=== PATIENT | male | born 1985 | race Caucasian/White ===

== ENCOUNTER 2024-05-03 09:19 | Emergency (ER) | payer OTHER ==
[~2024-05-03] VITALS: Ht 175.3 cm; Wt 81.9 kg
[2024-05-03] MEDS: ACETAMINOPHEN 500 MG TAB PO ONE (13:43)
[2024-05-03] MEDS: NS (Normal Saline) 0.9% 1,000 ML IV ONE (13:44)
[2024-05-03] MEDS: KETOROLAC 30 MG/ML 1ML VIAL IV ONE (13:44)
[2024-05-03] MEDS: METOCLOPRAMIDE INJ 10MG/2ML VIAL IV ONE (13:44)
[2024-05-03 15:19] VITALS: BP 117/57; TEMP 96.9; O2SAT 97
== END 2024-05-03 15:21 | disposition home or self-care (01) ==
LOC: M ED 09:19
DX: G43.909 Migraine, unspecified, not intractable, without status migrainosus (principal); F17.290 Nicotine dependence, other tobacco product, uncomplicated; Z91.030 Bee allergy status
CPT/HCPCS: 96361; 96374; 99284; J1100; J1885; J2765